=== PATIENT | female | born 1965 | race Caucasian/White ===

== ENCOUNTER 2018-05-04 10:54 | Emergency (ER) | payer MEDICAID ==
[~2018-05-04] VITALS: Ht 172.7 cm; Wt 109.3 kg
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
[2018-05-04 12:28] LABS: BASOPHILS # (AUTO) 0.1 /CMM (0.0-0.2); BASOPHILS % (AUTO) 1.1 % (0.0-2.0); EOSINOPHILS % (AUTO) 1.5 % (0.0-6.0); HEMATOCRIT 44 % (33-45); LYMPHOCYTES # (AUTO) 2.6 /CMM (0.8-4.8); LYMPHOCYTES % (AUTO) 28.6 % (20.0-44.0); MEAN CORPUSCULAR HGB CONC 34 g/dl (31.0-36.0); MEAN CORPUSCULAR VOLUME 89 fL (82-100); MONOCYTES # (AUTO) 0.5 /CMM (0.1-1.30); MONOCYTES % (AUTO) 5.9 % (2.0-12.0); NEUTROPHILS # (AUTO) 5.6 /CMM (1.8-8.9); NEUTROPHILS % (AUTO) 62.9 % (43.0-81.0); PLATELET COUNT (AUTO) 379 /CMM (150-450); RED BLOOD CELL COUNT(AUTO) 4.96 MIL/uL (4.0-5.2)
[2018-05-04 12:38] LABS: CALCIUM, SERUM 8.7 mg/dL (8.5-10.1); CARBON DIOXIDE 20 mmol/L (21-32); CHLORIDE 104 mmol/L (98-107); GLUCOSE 107 mg/dL (74-106); POTASSIUM 3.7 mmol/L (3.5-5.1); SODIUM SERUM 139 mmol/L (136-145); UREA NITROGEN, BLOOD 12 mg/dL (7-18)
[2018-05-04 12:41] LABS: ALCOHOL, BLOOD < 3 mg/dL (0-0)
[2018-05-04 13:39] VITALS: BP 150/55
--- NOTE | 2018-05-04 13:40 | NUR ---
Patient discharged to home in stable condition. Written and verbal after care instructions given. Patient verbalizes understanding of instruction.IV removed. Catheter intact and site benign. Pressure and 4x4 applied to site. No bleeding noted.
== END 2018-05-04 13:40 | disposition home or self-care (01) ==
LOC: ER 10:57
DX: R56.9 Unspecified convulsions (principal); M54.5 Low back pain; F31.9 Bipolar disorder, unspecified
CPT/HCPCS: 36415; 70450-TC; 71045-TC; 72110-TC; 80048-TC; 85025-TC; G0480

== ENCOUNTER 2022-11-20 15:10 | Emergency (ER) | payer MEDICAID, OTHER ==
[~2022-11-20] VITALS: Ht 172.7 cm; Wt 81.6 kg
[2022-11-20] MEDS ORDERED: IV NS 0.9% 1,000 ML BAG IV ONE (15:30)
--- NOTE | 2022-11-20 15:46 | NUR ---
PATIENT CAME WITH SEIZURE.ALERT AND ORIENTED,ON ROOM AIR,SEZIURE PRECAUTION STARTRD .ATTACHED TO MONITOR
--- NOTE | 2022-11-20 15:47 | NUR ---
IV INSERTED ON LEFT HAND NO 20,BLOOD COLLECTED AND SEND TO LAB
--- NOTE | 2022-11-20 15:48 | NUR ---
DR MCCAULEY AT BED SIDE
--- NOTE | 2022-11-20 16:59 | NUR ---
CALLED PHARM FOR ROBBIE
[2022-11-20] MEDS ORDERED: LEVETIRACETAM (500MG) 1,000 MG in IV NS 0.9% 100 ML IV SCH (17:00)
--- NOTE | 2022-11-20 17:18 | NUR ---
park fuentes started 171 end time [id number]
[2022-11-20] MEDS ORDERED: LEVE500T9 PO ×3 (17:35→22:10)
--- NOTE | 2022-11-20 17:41 | NUR ---
CALVIN ALONZO (BROTHER)
--- NOTE | 2022-11-20 19:10 | NUR ---
PATIENT COMFORTABLY LYING ON BED ,VITALS ARE ITH IN NORMAL LIMITS
--- NOTE | 2022-11-20 19:14 | NUR ---
PATIENT HAND OVER TO ALE FOR FR[facility]ICK
--- NOTE | 2022-11-20 20:01 | NUR ---
[facility] TO D/C HOME ETA 2-3 HRS
[2022-11-20 22:03] VITALS: BP 139/74; TEMP 98.3; O2SAT 98
== END 2022-11-20 22:03 | disposition home or self-care (01) ==
LOC: ER 15:16
DX: G40.909 Epilepsy, unspecified, not intractable, without status epilepticus (principal); F31.9 Bipolar disorder, unspecified
CPT/HCPCS: 99285; 96365; 96361; J7030 ×2; A4223; J1953